=== PATIENT | female | born 1985 | race Two or more races ===

== ENCOUNTER → 2023-11-16 | Outpatient (CLI) | payer MEDICAID ==
[~2023-11-16] MED LIST: ALBUAER3 IN; AZIT-43 PO; PRED20TA2 PO
== END | disposition home or self-care (01) ==
LOC: XYW 12:31
PROVIDERS: ATTEND Student in an Organized Health Care Education/Training Program
DX: R00.2 Palpitations (principal); I51.89 Other ill-defined heart diseases
CPT/HCPCS: 93306

== ENCOUNTER 2023-11-17 03:26 | Emergency (ER) | payer MEDICAID ==
[~2023-11-17] VITALS: Ht 165.1 cm; Wt 50.1 kg
[2023-11-17 03:32] VITALS: BP 122/75; PULSE 92; RESP 18; TEMP 98.6; O2SAT 98
[2023-11-17] MEDS ORDERED: PRED20TA2 PO (04:10)
[2023-11-17] MEDS ORDERED: AZIT-43 PO (04:10)
[2023-11-17] MEDS ORDERED: ALBUAER3 IN (04:10)
[2023-11-17] MEDS: methylPREDNISolone SOD SUCC 125 MG/2 ML VL IM ONE (04:16)
== END 2023-11-17 04:15 | disposition home or self-care (01) ==
LOC: ER 03:26
DX: J06.9 Acute upper respiratory infection, unspecified (principal); Z98.890 Other specified postprocedural states
CPT/HCPCS: 96372; 99283; J2930

== ENCOUNTER 2024-03-25 12:31 | Emergency (ER) | payer MEDICAID ==
[~2024-03-25] VITALS: Ht 165.1 cm; Wt 53.8 kg
[2024-03-25 15:30] VITALS: PULSE 66; RESP 15; O2SAT 98
[2024-03-25 15:49] LABS: Basophils # (auto) 0 10 ^3/uL (0-0.2); Basophils % (auto) 0.1 % (0.0-2.0); Eosinophils # (auto) 0 10 ^3/uL (0-0.8); Eosinophils % (auto) 0.3 % (0.0-7.0); Hematocrit 35.5 % (36.0-46.0); Hemoglobin 12.3 g/dL (12.2-16.2); Lymphocytes % (auto) 8.5 % (10.0-50.0); Mean Corpuscular Hemoglobin 33.1 pg (28.0-32.0); Mean Corpuscular Hgb Conc. 34.8 g/dL (32.0-36.0); Mean Corpuscular Volume 95.1 fL (80.0-100.0); Monocytes # (auto) 0.4 10 ^3/uL (0-1.3); Monocytes % (auto) 3.2 % (0.0-12.0); Neutrophils # (auto) 10.5 10 ^3/uL (1.6-8.6); Neutrophils % (auto) 87.9 % (37.0-80.0); Red Blood Cells 3.73 10^6/uL (4.0-5.20); Red Cell Distribution Width 13.7 % (11.8-14.3)
[2024-03-25] MEDS: SODIUM CHLORIDE 0.9% 1,000 ML IV ONE (15:50)
[2024-03-25 16:05] LABS: Alanine Aminotransferase 14 U/L (7-40); Albumin 3.8 g/dL (3.2-4.8); Alkaline Phosphatase 47 U/L (46-116); Anion Gap 8 (5-15); Aspartate Aminotransferase 10 U/L (13-40); BUN/Creatinine Ratio 15.2 (10.0-20.0); Blood Urea Nitrogen 7 mg/dL (9-23); Carbon Dioxide 24 mmol/L (20-30); Chloride 106 mmol/L (98-107); Glucose 104 mg/dL (74-106); Magnesium 1.9 mg/dL (1.6-2.6); Potassium 3.8 mmol/L (3.5-5.1); Sodium 138 mmol/L (136-145)
[2024-03-25 16:06] LABS: Bilirubin, Total 0.5 mg/dL (0.2-1.0); Total Protein 6.1 g/dL (5.7-8.2)
[2024-03-25 16:07] LABS: Urine Bacteria FEW /hpf (None Seen); Urine Blood Negative /uL (Negative); Urine Clarity Clear (Clear); Urine Color Yellow (Yellow); Urine Mucus FEW (None Seen); Urine Protein, UAD TRACE (Negative); Urine Urobilinogen 2 mg/dL (Negative); Urine WBC 4 /hpf (0 - 5)
[2024-03-25 17:10] VITALS: BP 104/49; PULSE 78; RESP 18; TEMP 98.9; O2SAT 99
== END 2024-03-25 17:10 | disposition home or self-care (01) ==
LOC: ER 12:31
DX: O99.352 Diseases of the nervous system complicating pregnancy, second trimester (principal); R55 Syncope and collapse; Z3A.21 21 weeks gestation of pregnancy
CPT/HCPCS: 36415; 80053; 81001; 83735; 84484; 85025; 93005; 96360; 99284; J7030